=== PATIENT | female | born 1960 | race Hispanic/Latino ===

== ENCOUNTER 2021-07-27 14:03 | Emergency (ER) | payer OTHER ==
[~2021-07-27] VITALS: Ht 167.6 cm; Wt 79.4 kg
[~2021-07-27 14:03] MED LIST: ACETAMINOPHEN-1 EAC1 PO; AMOXICILLIN500 MG; IBUPROFEN800 MG PO; LEVOTHYROXINE25 MCG; TYLENOL325 MG PO; VISTARIL25 MG PO
--- OUTSIDE RECORDS SUMMARY | 2021-07-27 14:12 | XMS ---
PreManage Notification: KEENA HIC[employer] Security Basic Acoustic Analyst Events No recent Security Events currently on file CRITERIA MET - [facility] - 2 Visits in 30 Days CARE PROVIDERS CATHLEEN MURPHY Current PHONE: [phone] Jerry has no Care Guidelines for this patient. E.Miranda VIS[facility] COUNT (12 MO.) [facility] TOTAL 2 NOTE: Visits indicate total known visits. ED/C VISIT TRACKING (12 MO.) 07/27/2021 14:04 [facility] [place] TYPE: Emergency COMPLAINT: - MENTAL ISSUES [facility] DIAGNOSES: - Insomnia, unspecified - Manic Behavior - Hallucinations - poss manic episode - Hallucinations, unspecified - Acute cystitis without hematuria INPATIENT VISIT TRACKING (12 MO.) No inpatient visits to display in this time frame [email or web address]
[2021-07-27] MEDS ORDERED: SERTRALINE HCL50 MG PO (14:55)
[2021-07-27] MEDS ORDERED: CEFDINIR300 MG PO (14:55)
[2021-07-27] MEDS ORDERED: TRAZODONE HCL100 MG PO (14:55)
[2021-07-27] MEDS ORDERED: FREESTYLE LITE1 EAC1 MISC (14:56)
[2021-07-27] MEDS ORDERED: LISINOPRIL20 MG PO (14:56)
[2021-07-27] MEDS ORDERED: METFORMIN HCL500 MG PO (14:56)
[2021-07-27] MEDS ORDERED: ATORVASTATIN CA40 MG PO (14:56)
[2021-07-27] MEDS ORDERED: ZYPREXA10 MG PO (19:02)
== END 2021-07-27 19:23 | disposition home or self-care (01) ==
LOC: ED 14:03
DX: F32.3 Major depressive disorder, single episode, severe with psychotic features (principal); Z20.822 Contact with and (suspected) exposure to COVID-19; F03.90 Unspecified dementia, unspecified severity, without behavioral disturbance, psychotic disturbance, mood disturbance, and anxiety; Z79.899 Other long term (current) drug therapy; Z79.84 Long term (current) use of oral hypoglycemic drugs
CPT/HCPCS: 80053; 81001; 84443; 85025; 99284; C9803; J7030; U0003